=== PATIENT | male | born 1995 | race Caucasian/White ===

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

== ENCOUNTER 2017-03-02 01:46 | Inpatient (IN) | payer OTHER ==
[2017-03-02] VITALS (13 sets, daily range): BP systolic 125–151; BP diastolic 66–78; PULSE 101–119; TEMP 36.6–37.7; O2SAT 92–96; Ht 182.9 cm; Wt 57.6 kg
[~2017-03-02] VITALS: Ht 182.9 cm; Wt 57.6 kg
[~2017-03-02 01:46] MED LIST: ZTHM250 PO
[2017-03-02] MEDS ORDERED: METHYLPREDNISOLONE 125 MG VIAL IV STA (01:57)
[2017-03-02] MEDS ORDERED: ALBUT/IPRATROP 3MG/0.5MG NEB 3 ML VIAL INH ONE (02:00)
[2017-03-02 02:22] LABS: BASO % 0.9 %; BASO ABS # 0.08 K/uL (0-0.2); COMPLETE YES; EOS % 14.7 %; HEMATOCRIT 45.6 % (42-52); IG% 0.2 %; LYMPH % 15.6 %; LYMPH ABS # 1.43 K/uL (1.2-3.4); MEAN CELL VOLUME 85.7 fL (80-100); MEAN CORPUSCULAR HEMOGLOBIN 31.6 pg (25-34); MEAN CORPUSCULAR HGB CONC 36.8 g/dl (32-36); MEAN PLATELET VOLUME 10.3 fL (7.4-10.4); MONO % 9.4 %; NEUT % 59.2 %; PLATELET COUNT 229 K/uL (130-400); RED BLOOD COUNT 5.32 M/uL (4.7-6.1); WHITE BLOOD COUNT 9.14 K/uL (4.8-10.8)
[2017-03-02 02:40] LABS: BLOOD UREA NITROGEN 13 mg/dl (7-18); BUN/CREATININE RATIO 11.5 (10-20); CALCIUM 9.3 mg/dl (8.5-10.1); CARBON DIOXIDE 27 mmol/L (21-32); CHLORIDE 106 mmol/L (98-107); GLUCOSE 87 mg/dl (70-99); MAGNESIUM 2.1 mg/dl (1.8-2.4); POTASSIUM 3.5 mmol/L (3.5-5.1); SODIUM 140 mmol/L (136-145)
--- NOTE | 2017-03-02 04:04 | EMERGENCY ROOM VISIT NOTE ---
History Report prepared by Jillibemilee: Jim Alvarez Under the Supervision of: Dr. Jacky Verma M.D. First contact with patient: 01:54 Chief Complaint: RESPIRATORY PROBLEMS Stated Complaint: ASTHMA History of Present Illness The patient is a 22 year old male who presents to the Emergency Room with complaints of worsening shortness of breath beginning yesterday. He has a history of asthma, but does not have any inhalers at home. He states that his symptoms began with nausea. The patient also complains of upper back pain. He denies any chest pain. He has a history of similar symptoms along with his asthma. The patient denies any known sick contacts. Source of History: patient Onset: Yesterday Quality: other (shortness of breath) Timing: worsening Associated Symptoms: + back pain (upper), No chest pain Review of Systems See HPI for pertinent positives & negatives. A total of 10 systems reviewed and were otherwise negative. Past Medical & Surgical Medical Problems: (1) Asthma (2) Respiratory failure Family History No pertinent family history stated. Social History Smoking Status: Current Every Day Smoker Drug Use: none Current/Historical Medications No Active Prescriptions or Reported Meds Allergies Coded Allergies: No Known Allergies (Unverified , 03/30/04) Physical Exam Vital Signs Date Time Temp Pulse Resp B/P (MAP) Pulse Ox O2 Delivery O2 Flow Rate FiO2 03/02/17 05:00 117 21 103/75 96 Nasal Cannula 2.0 03/02/17 03:55 125 03/02/17 03:44 125 03/02/17 03:27 93 Nasal Cannula 2.0 03/02/17 03:27 129 23 133/89 93 Nasal Cannula 2.0 03/02/17 03:26 89 Room Air 03/02/17 02:23 110 26 133/89 100 Nebulizer 8.0 03/02/17 02:05 104 20 94 Room Air 03/02/17 02:03 114 03/02/17 01:51 36.6 108 16 145/97 95 Room Air Physical Exam GENERAL: Patient is uncomfortable appearing and in moderate distress. HEENT: No acute trauma, normocephalic atraumatic, mucous membranes moist, no nasal congestion, no scleral icterus. NECK: No stridor, no adenopathy, no meningismus, trachea is midline. LUNGS: Very tight lung sound with diffuse wheezing. HEART: Mildly tachycardic rate with a normal rhythm. No murmurs, rubs, gallops appreciated. ABDOMEN: Soft, nontender, bowel sounds positive, no masses appreciated, no peritonitis. BACK: No midline tenderness, no CVA tenderness EXTREMITIES: Normal motion all extremities, no cyanosis, no edema. NEUROLOGIC: Alert and oriented, no acute motor or sensory deficits, no focal weakness, cranial nerves grossly intact. SKIN: No rash, no jaundice, no diaphoresis. Medical Decision & Procedures ER Provider Diagnostic Interpretation: X ray results are stated below per my interpretation: Chest: 1 view: No infiltrate, no effusion, normal cardiac border. Laboratory Results 03/02/17 02:10 Red Blood Count 5.32, Mean Corpuscular Volume 85.7, Mean Corpuscular Hemoglobin 31.6, Mean Corpuscular Hemoglobin Concent 36.8, Mean Platelet Volume 10.3, Neutrophils (%) (Auto) 59.2, Lymphocytes (%) (Auto) 15.6, Monocytes (%) (Auto) 9.4, Eosinophils (%) (Auto) 14.7, Basophils (%) (Auto) 0.9, Neutrophils # (Auto ) 5.41, Lymphocytes # (Auto) 1.43, Monocytes # (Auto) 0.86, Eosinophils # (Auto ) 1.34, Basophils # (Auto) 0.08 03/02/17 02:10 Test 03/02/17 02:04 03/02/17 02:10 03/02/17 03:57 03/02/17 05:04 Influenza Type A Antigen Neg for Influ A (NEG) Influenza Type B Antigen Neg for Influ B (NEG) White Blood Count 9.14 K/uL (4.8-10.8) Red Blood Count 5.32 M/uL (4.7-6.1) Hemoglobin 16.8 g/dL (14.0-18.0) Hematocrit 45.6 % (42-52) Mean Corpuscular Volume 85.7 fL (80-100) Mean Corpuscular Hemoglobin 31.6 pg (25-34) Mean Corpuscular Hemoglobin Concent 36.8 g/dl (32-36) Platelet Count 229 K/uL (130-400) Mean Platelet Volume 10.3 fL (7.4-10.4) Neutrophils (%) (Auto) 59.2 % Lymphocytes (%) (Auto) 15.6 % Monocytes (%) (Auto) 9.4 % Eosinophils (%) (Auto) 14.7 % Basophils (%) (Auto) 0.9 % Neutrophils # (Auto) 5.41 K/uL (1.4-6.5) Lymphocytes # (Auto) 1.43 K/uL (1.2-3.4) Monocytes # (Auto) 0.86 K/uL (0.11-0.59) Eosinophils # (Auto) 1.34 K/uL (0-0.5) Basophils # (Auto) 0.08 K/uL (0-0.2) RDW Standard Deviation 38.4 fL (36.4-46.3) RDW Coefficient of Variation 12.3 % (11.5-14.5) Immature Granulocyte % (Auto) 0.2 % Immature Granulocyte # (Auto) 0.02 K/uL (0.00-0.02) Activated Partial Thromboplast Time 33.3 SECONDS (21.0-31.0) Partial Thromboplastin Ratio 1.3 Anion Gap 7.0 mmol/L (3-11) Est Creatinine Clear Calc Drug Dose 88.9 ml/min Estimated GFR () 111.4 Estimated GFR (Non- 96.1 BUN/Creatinine Ratio 11.5 (10-20) Calcium Level 9.3 mg/dl (8.5-10.1) Magnesium Level 2.1 mg/dl (1.8-2.4) Total Creatine Kinase 114 U/L (39-308) Creatine Kinase MB 0.7 ng/ml (0.5-3.6) Troponin I < 0.015 ng/ml (0-0.045) Thyroid Stimulating Hormone (TSH) 3.840 uIu/ml (0.300-4.500) Creatine Kinase MB Ratio (0-3.0) Arterial Blood pH 7.46 (7.35-7.45) Arterial Blood Partial Pressure CO2 31 mmHg (35-46) Arterial Blood Partial Pressure O2 80 mm/Hg (80-95) Arterial Blood HCO3 22 mmol/L (19-24) Arterial Blood Oxygen Saturation 96.0 % (90-95) Arterial Blood Base Excess -1.1 mEq/L (-9-1.8) Arterial Blood Gas Delivery 2L Yariel Test POS (POS) Laboratory results as reviewed by me. Medications Administered Medications (Trade) Dose Ordered Sig/Yvette Route Start Time Stop Time Status Last Admin Dose Admin Albuterol/ Ipratropium (Duoneb) 12 ml ONE ONCE INH 03/02/17 02:00 03/02/17 02:01 DC 03/02/17 02:02 12 ML Methylprednisolone Sodium Succinate (Solu-Medrol IV) 125 mg NOW STAT IV 03/02/17 01:57 03/02/17 01:59 DC 03/02/17 02:21 125 MG Potassium Chloride (Klor-Con M10) 50 meq ONE STAT PO 03/02/17 04:18 03/02/17 04:19 DC 03/02/17 04:47 50 MEQ Lactated Ringer's 1,000 ml @ 500 mls/hr Q2H STAT IV 03/02/17 04:12 03/02/17 06:11 03/02/17 04:48 500 MLS/HR ECG Indication: SOB/dyspnea Rate (beats per minute): 125 Rhythm: sinus tachycardia Findings: other (Prolonged QTC at 600. Diffuse ST abnormalities. ) ED Course 0155: The patient was evaluated in room B10. A complete history and physical exam was performed. 0157: Ordered Solu-Medrol 125 mg IV. 0200: Ordered DuoNeb 12 mL INH. 0315: I reassessed the patient. His lung sounds have improved, but there is still diffuse wheezing present. He is tachycardic. The patient states that he feels much better. 0340: Upon reevaluation, the patient is resting. Discussed results and treatment plan with the patient. He verbalized understanding and agreement with the treatment plan. The patient will be evaluated for further management. Medical Decision Differential: Infectious, Reactive Airway Disease, Pneumonia, Pneumothorax, COPD , CHF, ACS, Pulmonary Embolism, MSK, GI, Dissection, amongst other etiologies entertained. 22 yr old male with long history of asthma arrives in acute asthma exacerbation. Does have some URI symptoms as well, fortunately flu negative. CXR clear. Given hr neb with solu-medrol IV. After hour still quite poor lungs though improved. After hour later still significantly poor lung sounds though also with worsening hypoxia. This is consistent with asthma and he does not have PE risk factors thus I feel CT PE study not indicated at this time. Did note some back pain diffuse which is non-specific and does not seem compatible with dissection. EKG with diffuse ST abnormalities likely rate related and Trop negative. Periodically bumping in and out of [place]. Will need to come in for status asthmaticus given persistent hypoxia and poor lung sounds despite prolonged nebs/steroids. At this point tolerating NC O2 well without need for Bipap. Mag OK thus will hold on infusion. Medication Reconcilliation Current Medication List: was personally reviewed by me Blood Pressure Screening Patient's blood pressure: Elevated blood pressure Blood pressure disposition: Elevated BP felt to be situational Consults Time Called: [phone] Consulting Physician: Dr. Erika Armendariz Returned Call: [phone] Discussed the patient's case. The patient will be evaluated for further treatment and disposition. Impression Primary Impression: Status asthmaticus Scribe Attestation The scribe's documentation has been prepared under my direction and personally reviewed by me in its entirety. I confirm that the note above accurately reflects all work, treatment, procedures, and medical decision making performed by me. Departure Information Dispostion Being Evaluated By Hospitalist Prescriptions No Active Prescriptions or Reported Meds Referrals No Doctor, Assigned (PCP) Patient Instructions [facility]
[2017-03-02] MEDS ORDERED: LACTATED RINGER'S 1000ML 1,000 ML IV STA (04:12)
[2017-03-02] MEDS ORDERED: LACTATED RINGER'S 1000ML 1,000 ML IV SCH (04:15)
[2017-03-02] MEDS ORDERED: DOXYCYCLINE IV 100 MG in DEXTROSE 5% 100ML 100 ML IV STA (04:17)
[2017-03-02] MEDS ORDERED: POTASSIUM CHLORIDE 10 MEQ TABCR PO STA (04:18)
[2017-03-02] MEDS ORDERED: PNEUMOCOCCAL POLYSACCHARIDES 25 MCG/0.5 ML VIAL/SYR IM. ONE (05:00)
[2017-03-02] MEDS ORDERED: PROMETHAZINE HCL INJ 12.5 MG in SODIUM CHLORIDE 0.9% 50ML 50 ML IV PRN (05:00)
[2017-03-02] MEDS ORDERED: OXYCODONE/ACETAMINOPHEN 5-325 TAB PO PRN (05:00)
[2017-03-02] MEDS ORDERED: LEVALBUTEROL/IPRATROPIUM NEB INH PRN (05:00)
[2017-03-02] MEDS ORDERED: OPTIRAY 320 IV PRN (05:00)
[2017-03-02] MEDS ORDERED: PNEUMOCOCCAL ADMINISTRATION CHARGE ONE (05:00)
[2017-03-02] MEDS ORDERED: HYDROmorphone INJ 0.5 MG/0.5 ML SYR IV PRN (05:00)
[2017-03-02] MEDS ORDERED: LORAZEPAM 2 MG/ML 1 ML VIAL IV PRN (05:00)
[2017-03-02] MEDS ORDERED: ACETAMINOPHEN 325 MG TAB PO PRN (05:00)
[2017-03-02 05:04] LABS: PARTIAL THROMBOPLASTIN RATIO 1.3
[2017-03-02 05:13] LABS: ARTERIAL BLOOD GAS BASE EXCESS -1.1 mEq/L (-9-1.8); ARTERIAL BLOOD GAS HCO3 22 mmol/L (19-24); ARTERIAL BLOOD GAS PO2 80 mm/Hg (80-95); ARTERIAL BLOOD GAS pH 7.46 (7.35-7.45)
[2017-03-02 05:13] LABS: CKMB/CK RATIO 0.6 (0-3.0)
[2017-03-02 05:15] LABS: ALLEN TEST POS (POS); O2 ADMINISTRATION 2L
--- NOTE | 2017-03-02 05:51 | HISTORY & PHYSICAL EXAMINATION ---
DATE OF ADMISSION: 03/02/2017 PCP : isaias HISTORY OF PRESENT ILLNESS: History obtained from patient and records. Medical history significant for asthma, past tobacco abuse, childhood epilepsy. Patient has had asthma since he was 9 years old/attacks of about 3 times a year of late. Resolved with intervention given in the ER. The last few days, the patient woke up with a cold, subsequently noted a cough productive of yellow sputum. No chest pain, back pain, pleuritic, increasing shortness of breath, wheezing noted. Denies aspiration. No chills. At the Emergency Room, the patient received Solu-Medrol, breathing treatment for asthma exacerbation. MEDICAL HISTORY: As above. Last seizure was during childhood. SURGERIES: None. HOME MEDICATIONS: None. ALLERGIES: Pollen. FAMILY HISTORY: Asthma. PERSONAL AND SOCIAL HISTORY: Recently stopped smoking. No alcohol intake. 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 REVIEW OF SYSTEMS: As per HPI. All other ROS negative. PHYSICAL EXAMINATION: VITAL SIGNS: Blood pressure was noted to be 145/97, later 130/89, pulse rate 110, RR 20, temperature 36.6, sats 95 on room air, later 89 on room air, later 90 on 2 liters. GENERAL: Noted to be slightly anxious, hyposthenic. No respiratory distress. SKIN: Normal color. HEENT: [place] palpebral conjunctivae. Dry mucosa. Nasal cannula in place NECK: No JVD. Supple. CHEST: Expiratory wheezes. HEART: Tachycardic. ABDOMEN: Soft. EXTREMITIES: No edema. No tenderness NEUROLOGIC: No gross focality. LABS: Hemoglobin was noted to be 16.8, hematocrit 45.6, white cell count 10, platelets 229. Sodium was noted to be 143, K 3.5 chloride 106, CO2 27, BUN 13, creatinine 1, glucose was noted to be 87. Chest x-ray, as per my interpretation, some degree of hyperinflation, prominent pulmonary vasculature, right. EKG, as per my interpretation, rate 125, sinus tachycardia, right axis deviation , incomplete right bundle-branch block, ST depression on the inferior leads. ASSESSMENT: 1. Acute hypoxemic respiratory failure 2 to asthma exacerbation/complicated bronchitis, possible sepsis. Rule out pulmonary embolism, with pleuritic back pain complaints. 2. Past tobacco abuse. 3. Childhood seizures, now is well controlled, off meds. 4. Malnutrition (Low BMI) PLAN: PCU Supplemental O2 Baseline ABG cultures, Doxycycline for complicated bronchitis, nebs, steroids for asthma exacerbation, CT chest, PE study R SOB, pleuritic back pain Pulmonary consult. RE respiratory failure Nutrition consult, low BMI. DVT prophylaxis, Lovenox subQ. Full code. MTDD
[2017-03-02] MEDS ORDERED: LACTATED RINGER'S 1000ML 1,000 ML IV ONE (06:00)
[2017-03-02] MEDS ORDERED: LORAZEPAM INJ 0.5 MG in SYRINGE 0.75 ML IV PRN (06:00)
[2017-03-02] MEDS ORDERED: IPRATROPIUM BROMIDE NEB SOLN 0.02% 2.5 ML VIAL INH PRN (06:00)
[2017-03-02] MEDS ORDERED: LEVALBUTEROL 1.25MG/0.5ML NEB INH PRN (06:00)
[2017-03-02 06:28] LABS: URINE APPEARANCE CLEAR (CLEAR); URINE BILIRUBIN NEG (NEG); URINE COLOR YELLOW; URINE NITRITE NEG (NEG); URINE SPECIFIC GRAVITY 1.015 (1.000-1.030); UROBILINOGEN NEG (NEG); ZZUR CULT IF INDIC CLEAN CATCH NO
[2017-03-02] MEDS: LACTATED RINGER'S 1000ML 1,000 ML IV SCH ×3 (06:34→23:03)
[2017-03-02 06:41] LABS: MANUAL MICROSCOPIC REQUIRED? NO; REVIEW REQ? NO
[2017-03-02 06:43] LABS: INR 1.1 (0.9-1.1); PARTIAL THROMBOPLASTIN RATIO 1.2
[2017-03-02] MEDS ORDERED: INFLUENZA VIRUS QUAD VACCINE 0.5 ML SYR IM. ONE (07:00)
[2017-03-02] MEDS ORDERED: INFLUENZA ADMINISTRATION CHARGE ONE (07:00)
--- NOTE | 2017-03-02 07:23 | DIAGNOSTIC IMAGING REPORT ---
CHEST ONE VIEW PORTABLE CLINICAL HISTORY: 22 years-old Male presenting with shortness of breath. TECHNIQUE: Portable upright AP view of the chest was obtained. COMPARISON: 07/15/2016. FINDINGS: Cardiomediastinal silhouette normal. Apparent hyperinflation of the lungs may be due to respiratory effort. Lungs and pleural spaces clear. Osseous structures normal. The upper esophagus appears distended with gas as on prior exam. IMPRESSION: 1. Apparent hyperinflation. No focal infiltrate. Electronically signed by: Richmond Murguia M.D. 03/02/2017 7:21 AM Dictated Date/Time: 03/02/2017 7:20 AM
--- NOTE | 2017-03-02 08:04 | DIAGNOSTIC IMAGING REPORT ---
(CHEST FOR PE) ANGIO WITH CLINICAL HISTORY: 22 years-old Male presenting with shortness of breath, back pain. TECHNIQUE: Multidetector CT angiography of the chest was performed after administration of intravenous contrast. 3-D volumetric and/or maximum intensity projection (MIP) images were subsequently reconstructed for review. IV contrast: 92 mL of Optiray 320. A dose lowering technique was used consistent with the principles of ALARA (as low as reasonably achievable). COMPARISON: None. CT DOSE (mGy.cm): The estimated cumulative dose is 219.32 mGy.cm. FINDINGS: Embedded Processor topogram: Unremarkable. Pulmonary vasculature: The study is suboptimal for assessment of the pulmonary vascular tree secondary to respiratory motion artifact, significantly degrading evaluation and limiting diagnostic sensitivity. No central filling defect within the pulmonary arteries to suggest pulmonary embolus. Evaluation of segmental and subsegmental pulmonary arteries is limited. Main pulmonary artery not enlarged. No flattening of the interventricular septum. No intracardiac filling defect. Remaining chest: On soft tissue windows, normal thyroid and thoracic inlet. No axillary, supraclavicular, or mediastinal lymphadenopathy. Few prominent hilar lymph nodes bilaterally, which may be reactive. Four-vessel aortic arch noted. Separate origin of the splenic artery and suggestion of a replaced right hepatic artery arising from the superior mesenteric artery. Normal heart size. No pericardial or pleural effusion. Upper abdomen normal. On lung windows, minimal dependent changes at the right lung base likely atelectasis. Mosaic attenuation could suggest small airways disease. No other focal infiltrate. Airways patent. On bone windows, normal osseous structures. IMPRESSION: 1. No evidence of central pulmonary embolus allowing for degradation of image quality secondary to respiratory motion artifact. 2. Mosaic attenuation could suggest small airways disease. 3. Few prominent hilar lymph nodes bilaterally, possibly reactive. Electronically signed by: Richmond Murguia M.D. 03/02/2017 8:02 AM Dictated Date/Time: 03/02/2017 7:55 AM
[2017-03-02] MEDS: IPRATROPIUM BROMIDE NEB SOLN 0.02% 2.5 ML VIAL INH SCH ×3 (08:12→18:45)
[2017-03-02] MEDS: LEVALBUTEROL 1.25MG/0.5ML NEB INH SCH ×3 (08:13→18:44)
[2017-03-02] MEDS ORDERED: ENOXAPARIN 40 MG/0.4 ML SYR SC SCH (09:00)
[2017-03-02] MEDS ORDERED: LEVALBUTEROL/IPRATROPIUM NEB INH SCH (09:00)
[2017-03-02] MEDS: ENOXAPARIN 30 MG/0.3 ML SYR SQ SCH (10:01)
[2017-03-02 12:09] LABS: INFLUENZA A PCR Neg for Influ A (NEG); INFLUENZA B PCR Neg for Influ B (NEG)
[2017-03-02] MEDS: METHYLPREDNISOLONE IV 40 MG in SYRINGE 0 ML IV SCH ×2 (13:02→19:15)
--- NOTE | 2017-03-02 14:02 | Pulmonary Consultation ---
History General Date of Service: Mar 02, 2017. Stated Complaint: Respiratory Failure HPI The patient is a 22 year old male who presents to [facility] with complaints of Respiratory Failure. The patient's primary care provider is No Doctor, Assigned. Mr. Persaud is a 22-year-old male with past medical history of mild intermittent asthma, since childhood (age 9), who presents on 03/02/2017 with 1 day history of worsening shortness of breath associated with wheezing, productive cough and back pain. He describes sputum as yellowish in color. He states that he felt like he was coming down with a cold. He denies any fever, chills, chest pain or palpitations, and headaches, dizziness, lightheadedness, nausea, vomiting, or abdominal pain. Upon arrival to the ER patient was noted to have been moderate respiratory distress associated with diffuse wheezing. Chest x-ray showed no cardiopulmonary process but appeared to be hyperinflated. CT chest showed no central pulmonary embolus. There was mosaic pattern seen, likely representing small airway disease. EKG showed rate of 125, sinus tachycardia with prolonged QTC at 600 with incomplete right bundle branch block. Laboratory data showed a white blood cell count of 9, hemoglobin of 16 and platelet count of 229. Eosinophils 1.34%. Sodium 140, potassium 3.5 chloride 106, carbon dioxide level 27, BUN 13, creatinine 1.1, calcium 9.3, magnesium 2.1, troponin less than 0.015. Lactic acid was 4.6 and titrated down to 2.8. ABG 7.46/31/80/22/96% on 2 L nasal cannula. Influenza A and B antigens and PCR were negative. In the ED he was given Solu-Medrol IV 25 mg 1 dose, albuterol/ipratropium nebulizer 12 mL 1, potassium chloride 50 mEq and Ringer's lactate 1 L. He was admitted for acute asthma exacerbation. Upon further questioning this morning, patient states that his asthma is associated with exertion and exercise. He states when he is having an exacerbation it is often associated with a dry cough with some intermittent chest tightness and wheezing. He has a rescue inhaler but does not use it. He also attributes some of his symptoms to seasonal changes, especially in the spring and fall seasons. He says that he does have increased symptoms associated with pollens and dust. He does have family history of his siblings having history of asthma and allergies. He is a current smoker and states that he is trying to quit currently smokes. He states that he has used a peak flow meter in the past but does not know his baseline at this time. about 1-2 cigarettes per day.He denies any intubation. Denies any sick contacts or recent travel. Historian: patient Onset: just prior to arrival Severity: moderate Complaint Status: improved Review of Systems Constitutional: reports: as stated in HPI Eyes: reports: as stated in HPI ENT: reports: as stated in HPI Cardiovascular: reports: as stated in HPI Respiratory: reports: as stated in HPI Gastrointestinal: reports: as stated in HPI Genitourinary - Male: reports: as stated in HPI Musculoskeletal: reports: as stated in HPI Integumentary: reports: as stated in HPI Neurologic: reports: as stated in HPI Psychiatric: reports: as stated in HPI Endocrine: as stated in HPI Hematologic / Lymphatic: as stated in HPI Allergic / Immunologic: as stated in HPI All Other Symptoms All Other Systems: Reviewed and Negative Past Medical History Past Medical History: Mild intermittent asthma Childhood epilepsy Tobacco use disorder Past Surgical History: Denies any recent past surgical history Family History He has strong family history of asthma and atopy. He also history of diabetes, heart disease, hypertension cancer kidney stones and seizure disorder. Social History He is a current tobacco user. Currently smokes about 1-2 cigarettes per day. 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 He denies any alcohol use or illicit drug use. Hx Tobacco Use In Past Year?: Yes Smoking Status: Current Every Day Smoker History of MDRO History of MDRO: No Allergies Coded Allergies: No Known Allergies (Unverified , 03/30/04) Current Medications Reported Home Medications Medications Dose Route/Sig Max Daily Dose Days Date Category No Active Prescriptions or Reported Medications Rx Physical Physical Exam Vital Signs: Date Time Temp Pulse Resp B/P (MAP) Pulse Ox O2 Delivery O2 Flow Rate FiO2 03/02/17 11:35 37.7 111 16 151/78 (102) 95 Room Air 03/02/17 10:50 36.6 110 18 130/69 (89) 92 Room Air 03/02/17 08:16 111 16 96 Room Air 03/02/17 08:00 96 Room Air 03/02/17 07:31 36.9 112 14 125/69 (87) 96 Nasal Cannula 2.0 03/02/17 06:12 37.0 117 16 126/66 Nasal Cannula 2.0 03/02/17 05:00 117 21 103/75 96 Nasal Cannula 2.0 03/02/17 03:55 125 03/02/17 03:44 125 03/02/17 03:27 93 Nasal Cannula 2.0 03/02/17 03:27 129 23 133/89 93 Nasal Cannula 2.0 03/02/17 03:26 89 Room Air 03/02/17 02:23 110 26 133/89 100 Nebulizer 8.0 03/02/17 02:05 104 20 94 Room Air 03/02/17 02:03 114 03/02/17 01:51 36.6 108 16 145/97 95 Room Air General Appearance: WD/WN, NO APPARENT DISTRESS, thin Head: NORMOCEPHALIC, ATRAUMATIC Eyes: PERRLA, NO DISCHARGE, EOMI, SCLERAE NORMAL, CONJUNCTIVAE NORMAL ENT: NORMAL MOUTH EXAM Neck: NORMAL RANGE OF MOTION, NO TENDERNESS, TRACHEA MIDLINE, NO STRIDOR, SUPPLE Respiratory: BREATH SOUNDS NORMAL, CLEAR TO AUSCULTATION, wheezing (diffuse wheezing bilaterally, prolonged expiratory phase) Cardiovasular: REGULAR RATE/RHYTHM, NORMAL S1S2, NO M/G/R Abdomen: NON TENDER, NORMAL BOWEL SOUNDS Upper Extremities: NO EDEMA, NO DEFORMITY, NORMAL ROM Lower Extremities: NO EDEMA, NO DEFORMITY, NORMAL ROM Pulses: dorsalis pedis (R) (2+), dorsalis pedis (L) (2+) Neuro: ALERT, NORMAL MOTOR EXAM, NORMAL SENSATION, NORMAL CEREBELLAR EXAM, NORMAL SPEECH, NORMAL MEMORY Psychiatric: NORMAL AFFECT, NO SUICIDAL IDEATION, CONTRACTS FOR SAFETY Diagnostics Labs Results Past 24 Hours Test 03/02/17 00:00 03/02/17 02:04 03/02/17 02:10 03/02/17 03:57 Range/Units Urine Color YELLOW Urine Appearance CLEAR CLEAR Urine pH 6.0 4.5-7.5 Urine Specific [place] 1.015 1.000-1.030 Urine Protein NEG NEG Urine Glucose (UA) 2+ NEG Urine Ketones TRACE NEG Urine Occult Blood NEG NEG Urine Nitrite NEG NEG Urine Bilirubin NEG NEG Urine Urobilinogen NEG NEG Urine Leukocyte Esterase NEG NEG Influenza Type A Antigen Neg for Influ A NEG Influenza Type B Antigen Neg for Influ B NEG White Blood Count 9.14 4.8-10.8 K/uL Red Blood Count 5.32 4.7-6.1 M/uL Hemoglobin 16.8 14.0-18.0 g/dL Hematocrit 45.6 42-52 % Mean Corpuscular Volume 85.7 80-100 fL Mean Corpuscular Hemoglobin 31.6 25-34 pg Mean Corpuscular Hemoglobin Concent 36.8 32-36 g/dl Platelet Count 229 130-400 K/uL Mean Platelet Volume 10.3 7.4-10.4 fL Neutrophils (%) (Auto) 59.2 % Lymphocytes (%) (Auto) 15.6 % Monocytes (%) (Auto) 9.4 % Eosinophils (%) (Auto) 14.7 % Basophils (%) (Auto) 0.9 % Neutrophils # (Auto) 5.41 1.4-6.5 K/uL Lymphocytes # (Auto) 1.43 1.2-3.4 K/uL Monocytes # (Auto) 0.86 0.11-0.59 K/uL Eosinophils # (Auto) 1.34 0-0.5 K/uL Basophils # (Auto) 0.08 0-0.2 K/uL RDW Standard Deviation 38.4 36.4-46.3 fL RDW Coefficient of Variation 12.3 11.5-14.5 % Immature Granulocyte % (Auto) 0.2 % Immature Granulocyte # (Auto) 0.02 0.00-0.02 K/uL Activated Partial Thromboplast Time 33.3 21.0-31.0 SECONDS Partial Thromboplastin Ratio 1.3 Sodium Level 140 136-145 mmol/L Potassium Level 3.5 3.5-5.1 mmol/L Chloride Level 106 98-107 mmol/L Carbon Dioxide Level 27 21-32 mmol/L Anion Gap 7.0 3-11 mmol/L Blood Urea Nitrogen 13 7-18 mg/dl Creatinine 1.10 0.60-1.40 mg/dl Est Creatinine Clear Calc Drug Dose 88.9 ml/min Estimated GFR () 111.4 Estimated GFR (Non- 96.1 BUN/Creatinine Ratio 11.5 10-20 Random Glucose 87 70-99 mg/dl Calcium Level 9.3 8.5-10.1 mg/dl Magnesium Level 2.1 1.8-2.4 mg/dl Total Creatine Kinase 114 39-308 U/L Creatine Kinase MB 0.7 0.5-3.6 ng/ml Creatine Kinase MB Ratio 0.6 0-3.0 Troponin I < 0.015 0-0.045 ng/ml Thyroid Stimulating Hormone (TSH) 3.840 0.300-4.500 uIu/ml Test 03/02/17 05:04 03/02/17 05:59 03/02/17 10:00 03/02/17 12:17 Range/Units Arterial Blood pH 7.46 7.35-7.45 Arterial Blood Partial Pressure CO2 31 35-46 mmHg Arterial Blood Partial Pressure O2 80 80-95 mm/Hg Arterial Blood HCO3 22 19-24 mmol/L Arterial Blood Oxygen Saturation 96.0 90-95 % Arterial Blood Base Excess -1.1 -9-1.8 mEq/L Arterial Blood Gas Delivery 2L Yariel Test POS POS Lactic Acid Level 4.6 2.8 0.4-2.0 mmol/L Prothrombin Time 12.0 9.0-12.0 SECONDS Prothromb Time International Ratio 1.1 0.9-1.1 Activated Partial Thromboplast Time 30.3 21.0-31.0 SECONDS Partial Thromboplastin Ratio 1.2 Influenza Type A (RT-PCR) Neg for Influ A NEG Influenza Type B (RT-PCR) Neg for Influ B NEG Microbiology Results 03/02/17 Blood Culture, Received Pending 03/02/17 Blood Culture, Received Pending Diagnostic Radiology (CHEST FOR PE) ANGIO WITH CLINICAL HISTORY: 22 years-old Male presenting with shortness of breath, back pain. TECHNIQUE: Multidetector CT angiography of the chest was performed after administration of intravenous contrast. 3-D volumetric and/or maximum intensity projection (MIP) images were subsequently reconstructed for review. IV contrast: 92 mL of Optiray 320. A dose lowering technique was used consistent with the principles of ALARA (as low as reasonably achievable). COMPARISON: None. CT DOSE (mGy.cm): The estimated cumulative dose is 219.32 mGy.cm. 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 Pulmonary vasculature: The study is suboptimal for assessment of the pulmonary vascular tree secondary to respiratory motion artifact, significantly degrading evaluation and limiting diagnostic sensitivity. No central filling defect within the pulmonary arteries to suggest pulmonary embolus. Evaluation of segmental and subsegmental pulmonary arteries is limited. Main pulmonary artery not enlarged. No flattening of the interventricular septum. No intracardiac filling defect. Remaining chest: On soft tissue windows, normal thyroid and thoracic inlet. No axillary, supraclavicular, or mediastinal lymphadenopathy. Few prominent hilar lymph nodes bilaterally, which may be reactive. Four-vessel aortic arch noted. Separate origin of the splenic artery and suggestion of a replaced right hepatic artery arising from the superior mesenteric artery. Normal heart size. No pericardial or pleural effusion. Upper abdomen normal. On lung windows, minimal dependent changes at the right lung base likely atelectasis. Mosaic attenuation could suggest small airways disease. No other focal infiltrate. Airways patent. On bone windows, normal osseous structures. IMPRESSION: 1. No evidence of central pulmonary embolus allowing for degradation of image quality secondary to respiratory motion artifact. 2. Mosaic attenuation could suggest small airways disease. 3. Few prominent hilar lymph nodes bilaterally, possibly reactive. Electronically signed by: Richmond Murguia M.D. 03/02/2017 8:02 AM Dictated Date/Time: 03/02/2017 7:55 AM CHEST ONE VIEW PORTABLE CLINICAL HISTORY: 22 years-old Male presenting with shortness of breath. TECHNIQUE: Portable upright AP view of the chest was obtained. COMPARISON: 07/15/2016. FINDINGS: Cardiomediastinal silhouette normal. Apparent hyperinflation of the lungs may be due to respiratory effort. Lungs and pleural spaces clear. Osseous structures normal. The upper esophagus appears distended with gas as on prior exam. IMPRESSION: 1. Apparent hyperinflation. No focal infiltrate. Impression Assessment and Plan Mild intermittent asthma in acute exacerbation Tobacco use disorder Hypoxemia Patient appears to be in acute exacerbation of asthma. Chest x-ray is suggestive of hyperinflation often seen obstructive lung diseases. The mosaic pattern CT also corresponds with small airway disease hyperreactivity. His symptoms are usually well controlled but usually exacerbated with viral illness , he is exercise and seasonal changes. He is currently still wheezing diffusely but appears to be in no acute respiratory distress. There is no use of accessory muscles of respiration. He is speaking in full sentences. At the current time I would continue supplemental oxygen via nasal cannula to maintain SaO2 above 92%. Continue IV Solu-Medrol 40 mg IV every 8 hours Continue with albuterol every 4-6 hours when necessary He most likely has a viral illness, therefore antibiotic should not be continued for more than 5 days. Patient have aggressive pulmonary toilet with flutter valve s he is at high risk for mucus plugging. I feel the patient should be on an inhaled corticosteroid especially during the change of season. He can be prescribed Advair upon discharge. I encouraged patient to follow-up with PMD or corsets salesperson as an outpatient for refills of bronchodilators as his symptoms are less often associated with exercise or exertion. I advised that he should use bronchodilator prior to any strenuous activities. He should avoid all known triggers if at all possible. Please obtain daily peak flow Smoking cessation counseling given. I appreciate the consult and will continue to follow with you.
--- NOTE | 2017-03-02 15:35 | Progress Note ---
Internal Med Progress Note Date of Service: Mar 02, 2017. Provider Documentation: SUBJECTIVE: The patient was seen and examined Still has a lots of Wheezing and chest tightness Cough without any sputum OBJECTIVE: Vital Signs-as noted below Exam: General-Moderate distress at rest Eyes-normal ENT-normal Neck-supple Lungs-Decreased breath sound bilaterally Wheezing all over No crackles Heart-Regular Abdomen-Benign,no masses,bowel sound present Extremities-NO edema Neuro-AAOx3 Lab data as noted below. ASSESSMENT & PLAN: Acute Asthma Acute hypoxemic respiratory failure Recurrent exacerbation ~3 times /year -no admission to the hospital Possible viral infection /Bacterial bronchitis NO PE in CTA Cultures, Doxycycline for complicated bronchitis, Nebs, steroids for asthma exacerbation, Appreciate Pulmonary input Tobacco abuse. Advised to quit Counselled Childhood seizures, now is well controlled, off meds. Low BMI Nutrition consult, low BMI. DVT prophylaxis, Lovenox subQ. Full code. Vital Signs: Date Time Temp Pulse Resp B/P (MAP) Pulse Ox O2 Delivery O2 Flow Rate FiO2 03/02/17 15:06 36.8 119 18 145/72 (96) 93 Room Air Free Flow/Blowby 03/02/17 14:08 109 18 94 Room Air 03/02/17 12:00 96 Room Air 03/02/17 11:35 37.7 111 16 151/78 (102) 95 Room Air 03/02/17 10:50 36.6 110 18 130/69 (89) 92 Room Air 03/02/17 08:16 111 16 96 Room Air 03/02/17 08:00 96 Room Air 03/02/17 07:31 36.9 112 14 125/69 (87) 96 Nasal Cannula 2.0 03/02/17 06:12 37.0 117 16 126/66 Nasal Cannula 2.0 03/02/17 05:00 117 21 103/75 96 Nasal Cannula 2.0 03/02/17 03:55 125 03/02/17 03:44 125 03/02/17 03:27 93 Nasal Cannula 2.0 03/02/17 03:27 129 23 133/89 93 Nasal Cannula 2.0 03/02/17 03:26 89 Room Air 03/02/17 02:23 110 26 133/89 100 Nebulizer 8.0 03/02/17 02:05 104 20 94 Room Air 03/02/17 02:03 114 03/02/17 01:51 36.6 108 16 145/97 95 Room Air Lab Results: Results Past 24 Hours Test 03/02/17 00:00 03/02/17 02:04 03/02/17 02:10 03/02/17 03:57 Range/Units Urine Color YELLOW Urine Appearance CLEAR CLEAR Urine pH 6.0 4.5-7.5 Urine Specific [place] 1.015 1.000-1.030 Urine Protein NEG NEG Urine Glucose (UA) 2+ NEG Urine Ketones TRACE NEG Urine Occult Blood NEG NEG Urine Nitrite NEG NEG Urine Bilirubin NEG NEG Urine Urobilinogen NEG NEG Urine Leukocyte Esterase NEG NEG Influenza Type A Antigen Neg for Influ A NEG Influenza Type B Antigen Neg for Influ B NEG White Blood Count 9.14 4.8-10.8 K/uL Red Blood Count 5.32 4.7-6.1 M/uL Hemoglobin 16.8 14.0-18.0 g/dL Hematocrit 45.6 42-52 % Mean Corpuscular Volume 85.7 80-100 fL Mean Corpuscular Hemoglobin 31.6 25-34 pg Mean Corpuscular Hemoglobin Concent 36.8 32-36 g/dl Platelet Count 229 130-400 K/uL Mean Platelet Volume 10.3 7.4-10.4 fL Neutrophils (%) (Auto) 59.2 % Lymphocytes (%) (Auto) 15.6 % Monocytes (%) (Auto) 9.4 % Eosinophils (%) (Auto) 14.7 % Basophils (%) (Auto) 0.9 % Neutrophils # (Auto) 5.41 1.4-6.5 K/uL Lymphocytes # (Auto) 1.43 1.2-3.4 K/uL Monocytes # (Auto) 0.86 0.11-0.59 K/uL Eosinophils # (Auto) 1.34 0-0.5 K/uL Basophils # (Auto) 0.08 0-0.2 K/uL RDW Standard Deviation 38.4 36.4-46.3 fL RDW Coefficient of Variation 12.3 11.5-14.5 % Immature Granulocyte % (Auto) 0.2 % Immature Granulocyte # (Auto) 0.02 0.00-0.02 K/uL Activated Partial Thromboplast Time 33.3 21.0-31.0 SECONDS Partial Thromboplastin Ratio 1.3 Sodium Level 140 136-145 mmol/L Potassium Level 3.5 3.5-5.1 mmol/L Chloride Level 106 98-107 mmol/L Carbon Dioxide Level 27 21-32 mmol/L Anion Gap 7.0 3-11 mmol/L Blood Urea Nitrogen 13 7-18 mg/dl Creatinine 1.10 0.60-1.40 mg/dl Est Creatinine Clear Calc Drug Dose 88.9 ml/min Estimated GFR () 111.4 Estimated GFR (Non- 96.1 BUN/Creatinine Ratio 11.5 10-20 Random Glucose 87 70-99 mg/dl Calcium Level 9.3 8.5-10.1 mg/dl Magnesium Level 2.1 1.8-2.4 mg/dl Total Creatine Kinase 114 39-308 U/L Creatine Kinase MB 0.7 0.5-3.6 ng/ml Creatine Kinase MB Ratio 0.6 0-3.0 Troponin I < 0.015 0-0.045 ng/ml Thyroid Stimulating Hormone (TSH) 3.840 0.300-4.500 uIu/ml Test 03/02/17 05:04 03/02/17 05:59 03/02/17 10:00 03/02/17 12:17 Range/Units Arterial Blood pH 7.46 7.35-7.45 Arterial Blood Partial Pressure CO2 31 35-46 mmHg Arterial Blood Partial Pressure O2 80 80-95 mm/Hg Arterial Blood HCO3 22 19-24 mmol/L Arterial Blood Oxygen Saturation 96.0 90-95 % Arterial Blood Base Excess -1.1 -9-1.8 mEq/L Arterial Blood Gas Delivery 2L Yariel Test POS POS Lactic Acid Level 4.6 2.8 0.4-2.0 mmol/L Prothrombin Time 12.0 9.0-12.0 SECONDS Prothromb Time International Ratio 1.1 0.9-1.1 Activated Partial Thromboplast Time 30.3 21.0-31.0 SECONDS Partial Thromboplastin Ratio 1.2 Influenza Type A (RT-PCR) Neg for Influ A NEG Influenza Type B (RT-PCR) Neg for Influ B NEG Microbiology Results 03/02/17 Blood Culture, Received Pending 03/02/17 Blood Culture, Received Pending
[2017-03-02] MEDS: DOXYCYCLINE HYCLATE 100 MG CAP PO SCH (19:14)
[2017-03-02] MEDS ORDERED: NURSING VERBAL MED ORDER ONE (19:15)
[2017-03-03] VITALS (11 sets, daily range): BP systolic 130–161; BP diastolic 66–88; PULSE 92–117; TEMP 36.5–36.9; O2SAT 91–99
[2017-03-03] MEDS: LEVALBUTEROL 1.25MG/0.5ML NEB INH SCH ×3 (01:38→14:10)
[2017-03-03] MEDS: IPRATROPIUM BROMIDE NEB SOLN 0.02% 2.5 ML VIAL INH SCH ×3 (01:38→14:10)
[2017-03-03] MEDS: METHYLPREDNISOLONE IV 40 MG in SYRINGE 0 ML IV SCH ×2 (03:29→12:08)
[2017-03-03] MEDS: LACTATED RINGER'S 1000ML 1,000 ML IV SCH (05:07)
[2017-03-03 06:54] LABS: COMPLETE YES; HEMATOCRIT 42.3 % (42-52); IG% 0.3 %; LYMPH % 5.6 %; LYMPH ABS # 0.66 K/uL (1.2-3.4); MEAN CELL VOLUME 85.3 fL (80-100); MEAN CORPUSCULAR HEMOGLOBIN 30.6 pg (25-34); MEAN CORPUSCULAR HGB CONC 35.9 g/dl (32-36); MEAN PLATELET VOLUME 10.2 fL (7.4-10.4); MONO % 5.5 %; NEUT % 88.6 %; PLATELET COUNT 252 K/uL (130-400); RED BLOOD COUNT 4.96 M/uL (4.7-6.1)
[2017-03-03 07:25] LABS: BUN/CREATININE RATIO 12.6 (10-20); CALCIUM 9.4 mg/dl (8.5-10.1); CREATININE 0.81 mg/dl (0.60-1.40); POTASSIUM 3.8 mmol/L (3.5-5.1)
[2017-03-03] MEDS: DOXYCYCLINE HYCLATE 100 MG CAP PO SCH (08:31)
[2017-03-03] MEDS: ENOXAPARIN 30 MG/0.3 ML SYR SQ SCH (08:32)
--- NOTE | 2017-03-03 13:51 | Progress Note ---
Internal Med Progress Note Date of Service: Mar 03, 2017. Provider Documentation: SUBJECTIVE: The patient was seen and examined Still has a lots of Wheezing and chest tightness-improved a lot Cough without any sputum Much better today Ambulating without any difficulty OBJECTIVE: Vital Signs-as noted below Exam: General-Minimal distress at rest Eyes-normal ENT-normal Neck-supple Lungs-Decreased breath sound bilaterally No more wheezing noted No crackles Heart-Regular Abdomen-Benign,no masses,bowel sound present Extremities-NO edema Neuro-AAOx3 Lab data as noted below. ASSESSMENT & PLAN: Acute Asthma Acute hypoxemic respiratory failure Recurrent exacerbation ~3 times /year -no admission to the hospital Possible viral infection /Bacterial bronchitis NO PE in CTA Cultures, Doxycycline for complicated bronchitis, Nebs, steroids for asthma exacerbation, Appreciate Pulmonary input Ready to be discharged on tapering dose of prednisone and inhalers as prescribed Tobacco abuse. Advised to quit Counselled Childhood seizures, now is well controlled, off meds. No acute issue Low BMI Nutrition consult, low BMI. DVT prophylaxis, Lovenox subQ. Full code. Discharge home today Vital Signs: Date Time Temp Pulse Resp B/P (MAP) Pulse Ox O2 Delivery O2 Flow Rate FiO2 03/03/17 12:00 94 03/03/17 11:27 36.5 110 18 146/66 (92) 94 Room Air 03/03/17 08:11 97 18 94 Room Air 03/03/17 07:38 36.9 117 16 148/78 (101) 92 Room Air 03/03/17 05:47 36.7 116 18 161/87 (111) 94 Room Air 03/03/17 03:54 96 Room Air 03/03/17 01:39 97 18 91 Room Air 03/03/17 00:50 36.9 116 18 130/79 (96) 91 Room Air 03/02/17 23:45 96 Room Air 03/02/17 23:30 105 18 96 Room Air 03/02/17 19:05 Room Air 03/02/17 18:45 101 22 94 Room Air 03/02/17 16:00 Room Air 03/02/17 15:06 36.8 119 18 145/72 (96) 93 Room Air Free Flow/Blowby 03/02/17 14:08 109 18 94 Room Air Lab Results: Results Past 24 Hours Test 03/02/17 21:15 03/03/17 06:30 03/03/17 06:32 Range/Units Lactic Acid Level 2.4 2.2 0.4-2.0 mmol/L White Blood Count 11.80 4.8-10.8 K/uL Red Blood Count 4.96 4.7-6.1 M/uL Hemoglobin 15.2 14.0-18.0 g/dL Hematocrit 42.3 42-52 % Mean Corpuscular Volume 85.3 80-100 fL Mean Corpuscular Hemoglobin 30.6 25-34 pg Mean Corpuscular Hemoglobin Concent 35.9 32-36 g/dl Platelet Count 252 130-400 K/uL Mean Platelet Volume 10.2 7.4-10.4 fL Neutrophils (%) (Auto) 88.6 % Lymphocytes (%) (Auto) 5.6 % Monocytes (%) (Auto) 5.5 % Eosinophils (%) (Auto) 0.0 % Basophils (%) (Auto) 0.0 % Neutrophils # (Auto) 10.45 1.4-6.5 K/uL Lymphocytes # (Auto) 0.66 1.2-3.4 K/uL Monocytes # (Auto) 0.65 0.11-0.59 K/uL Eosinophils # (Auto) 0.00 0-0.5 K/uL Basophils # (Auto) 0.00 0-0.2 K/uL RDW Standard Deviation 40.1 36.4-46.3 fL RDW Coefficient of Variation 12.9 11.5-14.5 % Immature Granulocyte % (Auto) 0.3 % Immature Granulocyte # (Auto) 0.04 0.00-0.02 K/uL Sodium Level 141 136-145 mmol/L Potassium Level 3.8 3.5-5.1 mmol/L Chloride Level 110 98-107 mmol/L Carbon Dioxide Level 22 21-32 mmol/L Anion Gap 9.0 3-11 mmol/L Blood Urea Nitrogen 10 7-18 mg/dl Creatinine 0.81 0.60-1.40 mg/dl Est Creatinine Clear Calc Drug Dose 118.5 ml/min Estimated GFR () 148.3 Estimated GFR (Non- 127.9 BUN/Creatinine Ratio 12.6 10-20 Random Glucose 137 70-99 mg/dl Calcium Level 9.4 8.5-10.1 mg/dl
--- NOTE | 2017-03-03 15:28 | Pulmonology Progress Note ---
Pulmonary Progress Note Date of Service Mar 03, 2017. Attending Dr. Bennett Subjective Patient seen and examined. He states he is feeling much better. He is less short of breath. He has less wheezing and able to ambulate. Objective VS: reviewed. O/E: Gen: sitting up in bed, NAD, speaking in full sentences CVS: S1,S2, RRR Lungs: bilateral wheezing, no tachypnea, nonrespiratory distress, no use of accessory muscles or respiration Abd: soft/NT/ND/BS+ Ext: no cyanosis, no clubbing, no edema PEF: 400 ml Labs reviewed, Imaging viewed by me Medications reviewed. Assessment & Plan Mild intermittent asthma in acute exacerbation--improved Tobacco use disorder Hypoxemia--improved Patient appears to be much improved from a respiratory standpoint. PEF today 400 ml. He states that his baseline is aroudn 450 ml. He is currently still wheezing,but appears to be in no acute respiratory distress. There is no use of accessory muscles of respiration. He is speaking in full sentences. Continue supplemental oxygen via nasal cannula to maintain SaO2 above 92%. Discharge home on prednisone taper Discharge home on QVAR as a maintenance inhaled corticosteroid and Singulair Continue with albuterol every 4-6 hours when necessary I encouraged patient to follow-up with PMD or electrical lineworker as an outpatient for refills of bronchodilators as his symptoms are less often associated with exercise or exertion. I advised that he should use bronchodilator prior to any strenuous activities. He should avoid all known triggers if at all possible. Please obtain daily peak flow Smoking cessation counseling given. I will sign off on case today. Please contact me if you have any further questions or concerns. Data Medications: Current Inpatient Medications Medications (Trade) Dose Ordered Sig/Yvette Route Start Time Stop Time Status Last Admin Dose Admin Acetaminophen (Tylenol Tab) 650 mg Q4H PRN PO 03/02/17 05:00 04/01/17 04:59 Methylprednisolone Sodium Succinate 40 mg/Syringe 0.64 ml @ 1.5 mls/min Q8H IV 03/02/17 12:00 04/01/17 11:59 03/03/17 12:08 1.5 MLS/MIN Oxycodone/ Acetaminophen (Percocet 5-325mg Tab) 1 tab Q6H PRN PO 03/02/17 05:00 03/16/17 04:59 Hydromorphone HCl (Dilaudid Inj) 0.5 mg Q3H PRN IV 03/02/17 05:00 03/16/17 04:59 Lorazepam (Ativan Inj) 0.5 mg Q4H PRN IV 03/02/17 05:00 04/01/17 04:59 Doxycycline Hyclate (Vibramycin Cap) 100 mg BID PO 03/02/17 21:00 03/09/17 20:59 03/03/17 08:31 100 MG Promethazine HCl 12.5 mg/Sodium Chloride 50.5 ml @ 204 mls/hr Q6H PRN IV 03/02/17 05:00 04/01/17 04:59 Ioversol (Optiray 320) 100 ml UD PRN IV 03/02/17 05:00 03/06/17 04:59 Ipratropium [place] (Atrovent 0.02% 0.5MG/2.5ML Neb) 0.5 mg Q6R INH 03/02/17 09:00 04/01/17 08:59 03/03/17 14:10 0.5 MG Levalbuterol (Xopenex 1.25MG/ 0.5ML Neb) 1.25 mg Q6R INH 03/02/17 09:00 04/01/17 08:59 03/03/17 14:10 1.25 MG Ipratropium [place] (Atrovent 0.02% 0.5MG/2.5ML Neb) 0.5 mg Q4H PRN INH 03/02/17 06:00 04/01/17 05:59 03/02/17 23:28 0.5 MG Levalbuterol (Xopenex 1.25MG/ 0.5ML Neb) 1.25 mg Q4H PRN INH 03/02/17 06:00 04/01/17 05:59 03/02/17 23:28 1.25 MG Lorazepam 0.5 mg/ Syringe 1 ml @ 1 mls/min Q4H PRN IV 03/02/17 06:00 04/01/17 05:59 Enoxaparin Sodium (Lovenox Inj) 30 mg Q24H SQ 03/02/17 09:00 04/01/17 08:59 I & O: 24-Hour Column 03/04/17 08:00 Intake Total 1255 ml Output Total 600 ml Balance 655 ml Vital Signs: Date Time Temp Pulse Resp B/P (MAP) Pulse Ox O2 Delivery O2 Flow Rate FiO2 03/03/17 14:11 92 18 99 Room Air 03/03/17 12:00 94 03/03/17 11:27 36.5 110 18 146/66 (92) 94 Room Air 03/03/17 08:11 97 18 94 Room Air 03/03/17 07:38 36.9 117 16 148/78 (101) 92 Room Air 03/03/17 05:47 36.7 116 18 161/87 (111) 94 Room Air 03/03/17 03:54 96 Room Air 03/03/17 01:39 97 18 91 Room Air 03/03/17 00:50 36.9 116 18 130/79 (96) 91 Room Air 03/02/17 23:45 96 Room Air 03/02/17 23:30 105 18 96 Room Air 03/02/17 19:05 Room Air 03/02/17 18:45 101 22 94 Room Air 03/02/17 16:00 Room Air Laboratory Results: Last 24 Hours Test 03/02/17 21:15 03/03/17 06:30 03/03/17 06:32 Lactic Acid Level 2.4 mmol/L 2.2 mmol/L White Blood Count 11.80 K/uL Red Blood Count 4.96 M/uL Hemoglobin 15.2 g/dL Hematocrit 42.3 % Mean Corpuscular Volume 85.3 fL Mean Corpuscular Hemoglobin 30.6 pg Mean Corpuscular Hemoglobin Concent 35.9 g/dl Platelet Count 252 K/uL Mean Platelet Volume 10.2 fL Neutrophils (%) (Auto) 88.6 % Lymphocytes (%) (Auto) 5.6 % Monocytes (%) (Auto) 5.5 % Eosinophils (%) (Auto) 0.0 % Basophils (%) (Auto) 0.0 % Neutrophils # (Auto) 10.45 K/uL Lymphocytes # (Auto) 0.66 K/uL Monocytes # (Auto) 0.65 K/uL Eosinophils # (Auto) 0.00 K/uL Basophils # (Auto) 0.00 K/uL RDW Standard Deviation 40.1 fL RDW Coefficient of Variation 12.9 % Immature Granulocyte % (Auto) 0.3 % Immature Granulocyte # (Auto) 0.04 K/uL Sodium Level 141 mmol/L Potassium Level 3.8 mmol/L Chloride Level 110 mmol/L Carbon Dioxide Level 22 mmol/L Anion Gap 9.0 mmol/L Blood Urea Nitrogen 10 mg/dl Creatinine 0.81 mg/dl Est Creatinine Clear Calc Drug Dose 118.5 ml/min Estimated GFR () 148.3 Estimated GFR (Non- 127.9 BUN/Creatinine Ratio 12.6 Random Glucose 137 mg/dl Calcium Level 9.4 mg/dl
[2017-03-03] MEDS ORDERED: PRED10TA PO (15:38)
[2017-03-03] MEDS ORDERED: DXY100 PO (15:38)
[2017-03-03] MEDS ORDERED: PRVHFAIN INH (15:38)
[2017-03-03] MEDS ORDERED: QVRINH40 INH (15:38)
[2017-03-03] MEDS ORDERED: MONT1TAB3 PO (15:39)
--- NOTE | 2017-03-03 15:41 | Discharge Instructions ---
Discharge Instructions Date of Service Mar 03, 2017. Admission Reason for Admission: Respiratory Failure Discharge Discharge Diagnosis / Problem: Asthma Exacerbation,Tobacco use disorder Discharge Goals Goal(s): Prevent Disease Progression Activity Recommendations Activity Limitations: resume your previous activity . Instructions / Follow-Up Instructions / Follow-Up DR Walters on 03/08/17 at 2:45 PM.Will need Pulmonary follow up as well in 4-6 weeks Current Hospital Diet Patient's current hospital diet: Regular Diet Discharge Diet Recommended Diet: Regular Diet Pending Studies Studies pending at discharge: no Medical Emergencies . Who to Call and When: Medical Emergencies: If at any time you feel your situation is an emergency, please call 911 immediately. . Non-Emergent Contact Non-Emergency issues call your: Primary Care Provider . Past History Medical & Surgical History: (1) Asthma (2) Epilepsy (3) No significant past surgical history . "Provider Documentation" section prepared by Shelby Solano. . VTE Core Measure Inpt VTE Proph given/why not?: Enoxaparin (Lovenox)SQ
--- NOTE | 2017-03-04 08:28 | Discharge Summary ---
Discharge Summary Date of Service Mar 04, 2017. Discharge Summary Admission Date: Mar 02, 2017 at 04:29 Discharge Date: Mar 03, 2017 Discharge Disposition: Home Principal Diagnosis: Asthma Exacerbation,Tobacco use disorder Secondary Diagnoses/Problems: Please see H&P and Hospital Progress note Consultations: Pulmonary Medication Reconciliation New Medications: Albuterol (Ventolin Hfa) 60 Puffs/5400 Mcg Aers 2 PUFFS INH Q6H PRN for Wheezing, #1 Beclomethasone Dip (Qvar) 120 Puffs/4800 Mcg Aers 1 PUFF INH BID, #1 Montelukast Sodium (Singulair) 10 Mg Tab 10 MG PO DAILY, #30 TAB Prednisone Tab (Prednisone) 10 Mg Tab 10 MG PO UD for 20 Days, #50 TAB 4 PO daily for 5 days ,3 PO daily for 5 days,2 Po daily for 5 days,1 PO daily for 5 days Doxycycline Hyclate (Doxycycline Hyclate) 100 Mg Cap 100 MG PO BID for 3 Days, #6 CAP Admission Information HPI (per Admitting provider): DATE OF ADMISSION: 03/02/2017 PCP : none HISTORY OF PRESENT ILLNESS: History obtained from patient and records. Medical history significant for asthma, past tobacco abuse, childhood epilepsy. Patient has had asthma since he was 9 years old/attacks of about 3 times a year of late. Resolved with intervention given in the ER. The last few days, the patient woke up with a cold, subsequently noted a cough productive of yellow sputum. No chest pain, back pain, pleuritic, increasing shortness of breath, wheezing noted. Denies aspiration. No chills. At the Emergency Room, the patient received Solu-Medrol, breathing treatment for asthma exacerbation. MEDICAL HISTORY: As above. Last seizure was during childhood. SURGERIES: None. HOME MEDICATIONS: None. ALLERGIES: Pollen. FAMILY HISTORY: Asthma. PERSONAL AND SOCIAL HISTORY: Recently stopped smoking. No alcohol intake. 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 REVIEW OF SYSTEMS: As per HPI. All other ROS negative. PHYSICAL EXAMINATION: VITAL SIGNS: Blood pressure was noted to be 145/97, later 130/89, pulse rate 110, RR 20, temperature 36.6, sats 95 on room air, later 89 on room air, later 90 on 2 liters. GENERAL: Noted to be slightly anxious, hyposthenic. No respiratory distress. SKIN: Normal color. HEENT: [place] palpebral conjunctivae. Dry mucosa. Nasal cannula in place NECK: No JVD. Supple. CHEST: Expiratory wheezes. HEART: Tachycardic. ABDOMEN: Soft. EXTREMITIES: No edema. No tenderness NEUROLOGIC: No gross focality. LABS: Hemoglobin was noted to be 16.8, hematocrit 45.6, white cell count 10, platelets 229. Sodium was noted to be 143, K 3.5 chloride 106, CO2 27, BUN 13, creatinine 1, glucose was noted to be 87. Chest x-ray, as per my interpretation, some degree of hyperinflation, prominent pulmonary vasculature, right. EKG, as per my interpretation, rate 125, sinus tachycardia, right axis deviation , incomplete right bundle-branch block, ST depression on the inferior leads. ASSESSMENT: 1. Acute hypoxemic respiratory failure 2 to asthma exacerbation/complicated bronchitis, possible sepsis. Rule out pulmonary embolism, with pleuritic back pain complaints. 2. Past tobacco abuse. 3. Childhood seizures, now is well controlled, off meds. 4. Malnutrition (Low BMI) PLAN: PCU Supplemental O2 Baseline ABG cultures, Doxycycline for complicated bronchitis, nebs, steroids for asthma exacerbation, CT chest, PE study R SOB, pleuritic back pain Pulmonary consult. RE respiratory failure Nutrition consult, low BMI. DVT prophylaxis, Lovenox subQ. Full code. Hospital Course Acute Asthma Acute hypoxemic respiratory failure Recurrent exacerbation ~3 times /year -no admission to the hospital Possible viral infection /Bacterial bronchitis NO PE in CTA Cultures, Doxycycline for complicated bronchitis, Nebs, steroids for asthma exacerbation, Appreciate Pulmonary input Ready to be discharged on tapering dose of prednisone and inhalers as prescribed Tobacco abuse. Advised to quit Counselled Childhood seizures, now is well controlled, off meds. No acute issue Low BMI Nutrition consult, low BMI. DVT prophylaxis, Lovenox subQ. Full code. Discharge home today Total time spent on discharge = 35 minutes This includes examination of the patient, discharge planning, medication reconciliation, and communication with other providers. Discharge Instructions Date of Service Mar 03, 2017. Admission Reason for Admission: Respiratory Failure Discharge Discharge Diagnosis / Problem: Asthma Exacerbation,Tobacco use disorder Discharge Goals Goal(s): Prevent Disease Progression Activity Recommendations Activity Limitations: resume your previous activity . Instructions / Follow-Up Instructions / Follow-Up DR Walters on 03/08/17 at 2:45 PM.Will need Pulmonary follow up as well in 4-6 weeks Current Hospital Diet Patient's current hospital diet: Regular Diet Discharge Diet Recommended Diet: Regular Diet Pending Studies Studies pending at discharge: no Medical Emergencies . Who to Call and When: Medical Emergencies: If at any time you feel your situation is an emergency, please call 911 immediately. . Non-Emergent Contact Non-Emergency issues call your: Primary Care Provider . Past History Medical & Surgical History: (1) Asthma (2) Epilepsy (3) No significant past surgical history . "Provider Documentation" section prepared by Shelby Solano. . VTE Core Measure Inpt VTE Proph given/why not?: Enoxaparin (Lovenox)SQ <Electronically signed by Shelby Solano M.D.> Signed: 03/03/17 1546 Additional Copies To Jordan Walters M.D.
== END 2017-03-03 17:22 | disposition home or self-care (01) | DRG 189 ==
LOC: C.EDB 01:47 → C.MED 04:29 → ENRESERV 04:43
PROVIDERS: ADMIT Internal Medicine; ATTEND Internal Medicine
DX: J96.01 Acute respiratory failure with hypoxia (principal); E46 Unspecified protein-calorie malnutrition; J45.21 Mild intermittent asthma with (acute) exacerbation; Z82.5 Family history of asthma and other chronic lower respiratory diseases; F17.210 Nicotine dependence, cigarettes, uncomplicated; J40 Bronchitis, not specified as acute or chronic; M54.89 Other dorsalgia

== ENCOUNTER 2018-01-23 11:31 | Emergency (ER) | payer OTHER ==
[~2018-01-23] VITALS: Ht 182.9 cm; Wt 59.7 kg
[~2018-01-23 11:31] MED LIST changes: +DXY100 PO; +PRVHFAIN INH; +QVRINH40 INH; -ZTHM250 PO
[2018-01-23 11:33] VITALS: TEMP 36.6; Ht 182.9 cm; Wt 59.7 kg
[2018-01-23] MEDS ORDERED: BACITRACIN OINT 15 GM TUBE ONE (11:56)
[2018-01-23] MEDS ORDERED: LIDOCAINE HCL 2% JELLY 30 ML TUBE EXT STA (12:21)
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
[2018-01-23] MEDS ORDERED: KETOROLAC TROMETHAMINE 60 MG/2 ML VIAL IM STA (13:02)
[2018-01-23] MEDS ORDERED: CEPH500C PO (13:38)
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
[2018-01-23 14:16] VITALS: BP 129/78; PULSE 86; O2SAT 100
== END 2018-01-23 14:17 | disposition home or self-care (01) ==
LOC: C.EDB 12:10
DX: S09.90XA Unspecified injury of head, initial encounter (principal); T14.8XXA Other injury of unspecified body region, initial encounter; M25.511 Pain in right shoulder; M25.521 Pain in right elbow; V86.56XA Driver of dirt bike or motor/cross bike injured in nontraffic accident, initial encounter; J45.909 Unspecified asthma, uncomplicated; G40.909 Epilepsy, unspecified, not intractable, without status epilepticus